=== PATIENT | female | born 1965 | race African-American/Black ===

== ENCOUNTER 2024-07-30 15:43 | Emergency (ER) | payer MEDICARE, BC, OTHER ==
[2024-07-30] MEDS ORDERED: HYDROcodone/Acetaminophen 10/325 mg Tablet ONE (16:49)
== END 2024-07-30 17:00 | disposition home or self-care (01) ==
LOC: BURERS 15:43
DX: S81.812A Laceration without foreign body, left lower leg, initial encounter (principal); W22.8XXA Striking against or struck by other objects, initial encounter
CPT/HCPCS: 99283